=== PATIENT | male | born 1960 | race Caucasian/White ===

== ENCOUNTER → 2021-01-18 | Outpatient (CLI) | payer OTHER ==
[2021-01-18 15:21] LABS: Creatinine Urine 96.1 mg/dL (27.00-270.00)
[2021-01-18 15:25] LABS: Microalbumin, Urine Quant. 10.8 mg/L (0.000-20.000)
== END | disposition home or self-care (01) ==
LOC: LAB SHORT 12:20 → LAB FUT 01-16 12:05
PROVIDERS: Internal Medicine Nephrology
DX: N18.30 Chronic kidney disease, stage 3 unspecified (principal); D63.1 Anemia in chronic kidney disease; R76.9 Abnormal immunological finding in serum, unspecified; R94.5 Abnormal results of liver function studies; R94.6 Abnormal results of thyroid function studies
CPT/HCPCS: 81050; 82043; 82570; 84156

== ENCOUNTER → 2022-03-09 | Outpatient (CLI) | payer OTHER ==
[2022-03-09 12:40] LABS: Alanine Aminotransfer (ALT/SGP 96 U/L (12-78); Albumin, Blood 3.8 g/dL (3.4-5.0); Albumin/Globulin Ratio 0.9 (0.8-1.8); Alk Phos 87 U/L (50-136); Anion Gap 7 mmol/L (6-16); Aspartate Aminotrans (AST/SGOT 48 U/L (12-37); Bilirubin, Total 0.7 mg/dL (0.1-1.0); Blood Urea Nitrogen 30 mg/dL (8-24); Bun/Creatinine Ratio 22.4 (12.0-20.0); CHOL/HDL RATIO 3.7; CO2, Blood 23 mmol/L (21-32); Chloride, Blood 109 mmol/L (98-108); Cholesterol 125 mg/dL (50-200); Creatinine, Blood 1.34 mg/dL (0.60-1.20); Ferritin, Serum 247 ng/mL (26-388); Globulin, Blood 4.4 g/dL (2.2-4.0); Glomerular Filtration Rate 60 (60-); Glucose, Blood 100 mg/dL (70-99); HDL Cholesterol 34 mg/dL (>39); Iron Serum 77 ug/dL (65-175); LDL/HDL RATIO 1.5; Low Density Lipoprotein Chol 53 mg/dL (0-110); Percent Saturation 23.5 % (20.0-50.0); Potassium, Blood 4.3 mmol/L (3.5-5.5); Sodium, Blood 139 mmol/L (136-145); Total Iron Binding Capacity 327 ug/dL (250-450); Total Protein, Blood 8.2 g/dL (6.4-8.2); Triglycerides 192 mg/dL (30-160); Very Low Density Lipoprot Chol 38 mg/dL (6-32)
[2022-03-09 13:14] LABS: Microalb/Creat Ratio UR, Rand 58.235 mg/g (0.000-30.000); Microalbumin, Random Urine 59.4 mg/L (0.000-20.000)
== END ==
LOC: LAB SHORT 10:05 → LAB 10:05
PROVIDERS: Family Medicine
DX: E78.2 Mixed hyperlipidemia (principal); E11.22 Type 2 diabetes mellitus with diabetic chronic kidney disease; E11.36 Type 2 diabetes mellitus with diabetic cataract; E11.69 Type 2 diabetes mellitus with other specified complication; E83.119 Hemochromatosis, unspecified; N18.9 Chronic kidney disease, unspecified
CPT/HCPCS: 36415; 80053; 80061; 82043; 82570; 82728; 83036; 83540; 83550